=== PATIENT | female | born 1975 | race Caucasian/White ===

== ENCOUNTER 2021-11-25 08:29 | Emergency (ER) | payer BC ==
[2021-11-25] MEDS ORDERED: TORAdol 30 mg Injection IM ONE (08:49)
[2021-11-25] MEDS ORDERED: Norflex 60 MG/2 ML IM ONE (08:50)
[2021-11-25] MEDS ORDERED: TORAdol 30 mg Injection ONE (08:54)
[2021-11-25] MEDS ORDERED: Norflex 60 MG/2 ML ONE (08:54)
[2021-11-25 10:28] LABS: Appearance CLEAR (CLEAR); Bilirubin NEGATIVE (NEGATIVE); Glucose NEGATIVE (NEGATIVE); Ketones NEGATIVE (NEGATIVE); Ph 7.5 (5-6); Protein,Urine Dip NEGATIVE (Negative); RBC NEGATIVE Ery/ul (0-5); Specific Gravity 1.015 (1.005-1.025)
[2021-11-25 10:29] LABS: Dipstick done @ ? MAIN LAB; Nitrite POSITIVE (NEGATIVE); Urobilinogen 0.2 mg/dL (0-1)
[2021-11-25 10:30] LABS: Bacteria MANY /HPF (NEGATIVE); Mucus SLIGHT /HPF (NEGATIVE); Urine Cultured Indicated? YES
[2021-11-25] MEDS ORDERED: HYDROCODONE-ACETAMIN 10-325 MG PO ONE (11:04)
--- NOTE | 2021-11-25 11:39 | XRAY ---
Indication: Low back pain. UTI. Multiple contiguous axial images obtained through the abdomen and pelvis without contrast. Comparison: None Study is slightly degraded by respiration artifact throughout. Lung bases demonstrates tiny left base calcified granuloma. Heart not enlarged. Small hiatal hernia. Noncontrasted stomach and bowel loops appear nonobstructed with normal appendix. Mild scattered colonic fecal debris greatest in the ascending colon. 7.7 x 9.1 x 8.6 cm pelvic cystic mass left of midline, presumed ovarian in etiology. No free fluid/air. Nonobstructing right renal punctate calculus. Remaining liver, gallbladder, pancreas, spleen, adrenal glands, kidneys, ureters, bladder, and uterus appear unremarkable for noncontrast exam. Minimal aortoiliac calcifications without AAA. Osseous structures intact with minimal degenerative changes at the thoracolumbar spine. Impression: 1. Respiration artifact. 2. Large pelvic cystic mass presumed left ovary in etiology. Pelvic sonogram may yield further information if clinically warranted. 3. Mild fecal stasis, small hiatal hernia, nonobstructing right renal punctate calculus, and degenerative spondylosis.
[2021-11-25 11:41] VITALS: O2SAT 95
--- NOTE | 2021-11-25 12:18 | ERPHSYRPT ---
- History of Present Illness Source: patient Exam Limitations: no limitations Patient Subjective Stated Complaint: C/O lower back pain that started around 1pm yesterday. Patient states that she bent over to pick something up and couldn't straighten back up. Triage Nursing Assessment: Patient brought back to ED in a W/C. She is alert and oriented. Patient slow getting up from chair and into bed but was able to complete the task independently. No SOB. No skin alterations noted to lower back. No increased pain with palpation. Physician History: 46 yo wf w lumbar pain x 1 day which started when she was bending over to pick something up. Pain is "15" on 1-10 scale. It does not radiate, and movement makes it worse. Pain is described as sharp. She denies dysuria/hematuria/fever/N/V/D. Pt has a h/o recurrent UTI. Timing/Duration: yesterday Method of Injury: lifting Quality: sharp Back Pain Location: lumbar spine Modifying Factors: Improves With: movement Associated Symptoms: denies symptoms Previous symptoms: no prior history Allergies/Adverse Reactions: Sulfa (Sulfonamide Antibiotics) Allergy (Verified 11/25/21 08:40) Anaphylactic Reaction Home Medications: Cannabidiol (Cbd) [Epidiolex] 25 mg PO DAILY PRN PRN 07/26/21 [History] Ibuprofen [Ibu] 600 mg PO BID 07/26/21 [History] Lisinopril 10 mg [Zestril 10 MG] 10 mg PO DAILY 07/26/21 [History] Melatonin 10 mg PO HS 07/26/21 [History] Theodore-3 Fatty Acids/Fish Oil [Fish Oil 1,000 mg Capsule] 1 each PO DAILY 07/26/21 [History] Pantoprazole Sodium [Protonix] 40 mg PO DAILY 07/26/21 [History] Hx Tetanus, Diphtheria Vaccination/Date Given: Yes Hx Influenza Vaccination/Date Given: No Hx Pneumococcal Vaccination/Date Given: No Immunizations Up to Date: Yes Travel Risk - International Travel Have you traveled outside of the country in past 3 weeks: No - Coronavirus Screening Are you exhibiting any of the following symptoms?: No Close contact with a COVID-19 positive Pt in past 14-21 Days: No - Vaccine Status Have you recieved a Covid-19 vaccination: Yes Wildlife Conservationist: Moderna - Vaccination Dates Date of 2cond Vaccination (if applicable): 2020 - Review of Systems Constitutional: No Symptoms Eyes: No Symptoms Ears, Nose, & Throat: No Symptoms Respiratory: No Symptoms Cardiac: No Symptoms Abdominal/Gastrointestinal: No Symptoms Genitourinary Symptoms: No Symptoms Musculoskeletal: No Symptoms, Back Pain Skin: No Symptoms Neurological: No Symptoms Psychological: No Symptoms Endocrine: No Symptoms Hematologic/Lymphatic: No Symptoms Immunological/Allergic: No Symptoms - Past Medical History Pertinent Past Medical History: Yes Neurological History: Migraines ENT History: No Pertinent History Cardiac History: Hypertension Respiratory History: No Pertinent History Endocrine Medical History: No Pertinent History Musculoskeletal History: No Pertinent History GI Medical History: GERD History: Other Psycho-Social History: Anxiety, Bipolar, Depression Female Reproductive Disorders: No Pertinent History - Past Surgical History Past Surgical History: Yes Neuro Surgical History: No Pertinent History Cardiac: No Pertinent History Respiratory: No Pertinent History Gastrointestinal: No Pertinent History Genitourinary: No Pertinent History Musculoskeletal: No Pertinent History Female Surgical History: Section - Social History Smoking Status: Current every day smoker How long have you smoked: 29 years Exposure to second hand smoke: No Drug Use: none Patient Lives Alone: No Significant Family History: no pertinent family hx - Female History Hx Now: No - Nursing Vital Signs Nursing Vital Signs: Initial Vital Signs Temperature 98.7 F 11/25/21 08:40 Pulse Rate 80 11/25/21 08:40 Respiratory Rate 17 11/25/21 08:40 Blood Pressure 125/81 11/25/21 08:40 O2 Sat by Pulse Oximetry 99 11/25/21 08:40 Pain Scale Pain Intensity [] 10 Pain Intensity 10 WNL - Physical Exam General Appearance: no apparent distress Eye Exam: PERRL/EOMI, eyes nml inspection Ears, Nose, Throat Exam: normal ENT inspection, TMs normal, pharynx normal, moist mucous membranes Neck Exam: normal inspection, non-tender, supple, full range of motion, No meningismus, No mass, No Brudzinski, No Kernig's Respiratory Exam: normal breath sounds, lungs clear, airway intact, No respiratory distress Cardiovascular Exam: regular rate/rhythm, normal heart sounds, normal peripheral pulses, capillary refill <2 sec, No murmur Gastrointestinal Exam: soft, normal bowel sounds, No tenderness, No distention Back Exam: vertebral tenderness (Mid-Lumbar TTP w B CVA TTP) Extremity Exam: normal inspection, normal range of motion Peripheral Pulses: carotid (R): 2+, carotid (L): 2+ Neurologic Exam: alert, oriented x 3, cooperative, bonderizer II-XII nml as tested, normal mood/affect, nml cerebellar function, nml station & gait, sensation nml, No motor deficits, No sensory deficit Skin Exam: normal color, warm, dry Lymphatic Exam: No adenopathy SpO2 Interpretation: normal SpO2: 95 O2 Delivery: Room Air - Course Nursing assessment & vital signs reviewed: Yes - CT Exams Abdomen/Pelvis CT Interpretation: Discussed w/radiologist (Large L ovarian cyst/fecal valerie is/small hiatal hernia) Ordered Tests: Active Orders 24 hr Category Date Time Status ABDOMEN AND PELVIS W/0 CONTRAS [CT] Stat Exams 11/25/21 10:46 Completed CULTURE,URINE Stat Lab 11/25/21 10:25 Received UA W/RFX CULTURE Stat Lab 11/25/21 10:25 Completed Medication Summary Discontinued Medications Generic Name Dose Route Start Last Admin Trade Name Jose PRN Reason Stop Dose Admin Hydrocodone Bitart/Acetaminophen 1 tablet 11/25/21 11:04 11/25/21 11:29 Hydrocodone/Acetamin 10-325 Mg Tablet PO 11/25/21 11:05 1 tablet STAT ONE Administration Ceftriaxone Sodium 1,000 mg 11/25/21 12:21 11/25/21 12:31 Ceftriaxone Sodium 1000 Mg Inj Vial IM 11/25/21 12:22 1,000 mg STAT ONE Administration Ceftriaxone Sodium Confirm 11/25/21 12:29 Ceftriaxone Sodium 1000 Mg Inj Vial Administered 11/25/21 12:30 Dose 1,000 mg .ROUTE .STK-MED ONE Ketorolac Tromethamine 60 mg 11/25/21 08:49 11/25/21 08:55 Ketorolac Tromethamine 30 Mg/Ml Inj IM 11/25/21 08:50 60 mg STAT ONE Administration Ketorolac Tromethamine Confirm 11/25/21 08:54 Ketorolac Tromethamine 30 Mg/Ml Inj Administered 11/25/21 08:55 Dose 60 mg .ROUTE .STK-MED ONE Lidocaine HCl Confirm 11/25/21 12:30 Lidocaine Hcl 1% 20 Ml Mdv 20 Ml Ml Administered 11/25/21 12:31 Dose 1 ml .ROUTE .STK-MED ONE Orphenadrine Citrate 60 mg 11/25/21 08:50 11/25/21 09:07 Orphenadrine Citrate 60 Mg/2 Ml Vial IM 11/25/21 08:51 60 mg STAT ONE Administration Orphenadrine Citrate Confirm 11/25/21 08:54 Orphenadrine Citrate 60 Mg/2 Ml Vial Administered 11/25/21 08:55 Dose 60 mg .ROUTE .STK-MED ONE Lab/Rad Data: Laboratory Results 11/25/21 Range/Units 10:25 Urinalys Dipstick Clnc MAIN LAB Urine Color YELLOW (YELLOW) Urine Appearance CLEAR (CLEAR) Urine pH 7.5 (5-6) Ur Specific [place] 1.015 (1.005-1.025) POC Urine Protein Conf NEGATIVE (Negative) Urine Ketones NEGATIVE (NEGATIVE) Urine Nitrite POSITIVE (NEGATIVE) Urine Bilirubin NEGATIVE (NEGATIVE) Urine Urobilinogen 0.2 (0-1) mg/dL Urine Leukocytes SMALL (NEGATIVE) Urine WBC (Auto) 6-10 (0-5) /HPF Urine RBC (Auto) NONE (0-2) /HPF U Epithel Cells (Auto) NONE (FEW) /HPF Urine Bacteria (Auto) MANY (NEGATIVE) /HPF Urine RBC NEGATIVE (0-5) Onesimo/ul Urine Mucus (Auto) SLIGHT (NEGATIVE) /HPF Ur Culture Indicated? YES Urine Glucose NEGATIVE (NEGATIVE) mg/dL - Progress Progress: improved Progress Note: 11/25/21 12:23 60mg IM Toradol/60mg IM Norflex w minimal improvement Norco10 po x [address] results reviewed w pt 11/25/21 12:34 1gm IM Rocephin 11/25/21 20:09 Last C and S of urine grew out E. Coli w multiple resistance/Resistance to Macrobid not tested, so will prescribe and await C&S Counseled pt/family regarding: lab results, diagnosis, need for follow-up, rad results - Departure Departure Disposition: Home Clinical Impression: UTI (urinary tract infection), Lumbar strain, Ovarian cyst Condition: Stable Critical Care Time: No Referrals: CHAVA MAHAJAN, [employer] PROTE[employer] SPECIALIST [Primary Care Provider] - Follow up/PCP as directed BISHNU ENAMORADO DO [ACTIVE STAFF] - Follow up/PCP as directed Instructions: Low Back Pain (DC), Urinary Tract Infection, Adult (DC), Ovarian Cyst (DC) Additional Instructions: Start Macrobid twice a day for 5 days Fluids Pain meds as muscle relaxers as needed Follow up with your family MD and/or urologist Return to ER for increasing pain or temperature greater than 100.5 Use a stool softener w pain meds Follow up with Dr. Enamorado or Meat Stringer of choice about ovarian cysy Prescriptions: Hydrocodone/Acetaminophen [Hydrocodone-Acetamin 10-325 mg] 1 each PO Q4-6HPRN PRN #8 tablet MDD 4 tabs PRN Reason: Pain Nitrofurantoin Monohyd/M-Cryst [Macrobid 100 mg Capsule] 100 mg PO BID #10 cap Orphenadrine Citrate 100 mg [Norflex 100 MG Tablet] 100 mg PO BID PRN PRN #10 tab PRN Reason: Pain
[2021-11-25] MEDS ORDERED: Rocephin 1000 MG INJ IM ONE (12:21)
[2021-11-25] MEDS ORDERED: Rocephin 1000 MG INJ ONE (12:29)
[2021-11-25] MEDS ORDERED: XYLOCAINE 1% HCL 20 ML MDV ONE (12:30)
[2021-11-25 13:02] VITALS: BP 130/84; PULSE 74
== END 2021-11-25 13:02 | disposition home or self-care (01) ==
LOC: ED 08:29
DX: S39.012A Strain of muscle, fascia and tendon of lower back, initial encounter (principal); X50.0XXA Overexertion from strenuous movement or load, initial encounter; N39.0 Urinary tract infection, site not specified; N83.202 Unspecified ovarian cyst, left side; I10 Essential (primary) hypertension; Z72.0 Tobacco use; Z79.899 Other long term (current) drug therapy; Z79.891 Long term (current) use of opiate analgesic
CPT/HCPCS: 74176; 81015; 87077; 87086; 87186; 96372; 99284; J0696; J1885; J2360; A9270-GY